=== PATIENT | male | born 1990 | race African-American/Black ===

== ENCOUNTER 2024-04-08 08:27 | Outpatient (CLI) | payer BC, SELFPAY ==
[2024-04-08 11:04] LABS: Albumin* 4.8 g/dL (3.3-5.0); Chloride* 103 mmol/L (96-114)
[2024-04-08 11:05] LABS: Potassium* 4.1 mmol/L (3.6-5.1); Sodium* 138 mmol/L (135-149)
[2024-04-08 11:07] LABS: Anion Gap 7 mEq/L (7-15); Aspartate Amino Transferase* 32 U/L (12-35); Bilirubin Total* 0.5 mg/dL (0.1-1.5); Blood Urea Nitrogen* 14 mg/dL (5-24); Carbon Dioxide* 28 mmol/L (20-32); Cholesterol* 265 mg/dL (90-199); Creatinine* 0.9 mg/dL (0.5-1.5); Estimated Glomerular Filt Rate 114 ml/min; Total Protein* 8.3 g/dL (6.0-8.3)
[2024-04-08 11:08] LABS: Alanine Aminotransferase* 30 U/L (4-50); Alkaline Phosphatase* 73 U/L (40-150); Calcium* 9.7 mg/dL (8.4-10.6); Glucose* 90 mg/dL (60-115); HDL Cholesterol* 62 mg/dL (>=40); LDL Cholesterol Calculated 171 mg/dL (<100); Triglycerides* 162 mg/dL (40-149)
== END 2024-04-08 08:28 | disposition home or self-care (01) ==
PROVIDERS: PCP Family Medicine; Visit Provider Family Medicine
DX: R10.9 Unspecified abdominal pain (principal); Z13.6 Encounter for screening for cardiovascular disorders
CPT/HCPCS: 80053; 80061